=== PATIENT | female | born 2000 | race American Indian/Alaskan Native ===

== ENCOUNTER 2024-12-17 22:44 | Emergency (ER) | payer MEDICAID, SELFPAY ==
[2024-12-17 22:48] VITALS: BMI 22.6
[2024-12-17 22:59] VITALS: BP 123/75; PULSE 98; RESP 20; TEMP 37.3; O2SAT 100
--- NOTE | 2024-12-17 23:18 | PD.EDADULT ---
ED General RME/HPI General Chief complaint: Flu Like Symptoms Stated complaint: 11 WKS PREG FEVER BODY ACHES NV Time Seen by Provider: 12/17/24 23:10 Arrival date/time: 12/17/24 22:44 Related Data Previous Rx's ?Medication ?Instructions ?Recorded amoxicillin 500 mg capsule 500 mg PO BID 10 days #20 caps 12/18/24 ondansetron 4 mg disintegrating 4 mg PO TID PRN nausea and 12/18/24 tablet vomiting 30 days #10 tabs Allergies Allergy/AdvReac Type Severity Reaction Status Date / Time No Known Allergies Allergy Verified 12/17/24 22:47 ED Exam Narrative Physical exam: GENERAL: NAD, AAOx3 HEENT: Moist mucosa. Eyes open, symmetrical, & clear CARDIO: Heart RRR, no obvious murmurs PULM: No noted coughing/dyspnea CTA B/L, no R/W/R GI: Abdomen soft, nondistended, no pain on palpation. BSx4 SKIN/MSK/EXT: No wounds/rashes/edema/amputations, no pain on palpation. Pedal pulses present B/L NEURO: AAOx3, no focal neuro deficits, able to move all 4 extremities Course Quality Measures none Orders Category Date Time Status Bedside COVID-19 Antigen Test NOW Care 12/17/24 23:20 Active Bedside Influenza A&B Antigen Test NOW Care 12/17/24 23:21 Completed heart tone auscultation Q4H Care 12/17/24 23:24 Active CBC Stat Lab 12/17/24 23:43 Completed CMP [Comprehensive Metabolic Panel] Stat Lab 12/17/24 23:43 Completed Strep A Rapid Stat Lab 12/18/24 00:00 Completed UA [Urinalysis] Stat Lab 12/17/24 00:00 Completed Amoxicillin Susp [Amoxil Susp] Med 12/18/24 00:58 Discontinued 500 mg PO X1 ONE KCL 10% Liq UDC 15 ML Med 12/18/24 00:49 Discontinued 40 meq PO X1 ONE Ondansetron Inj [Zofran Inj] Med 12/17/24 23:27 Discontinued 4 mg IVP X1 ONE Ondansetron Odt [Zofran Odt] Med 12/18/24 00:58 Discontinued 4 mg PO X1 ONE Ringers Lactated 1000 ml [Lactated Ringers] 1,000 ml Med 12/17/24 23:31 Discontinued IV 999 mls/hr oxyCODONE/APAP 5/325 [Percocet 5/325] Med 12/18/24 00:59 Discontinued 2 tab PO X1 ONE Vital Signs Vital signs: Vital Signs Temperature 99.2 F 12/17/24 22:59 Pulse Rate 98 12/17/24 22:59 Respiratory Rate 20 12/17/24 22:59 Blood Pressure 123/75 12/17/24 22:59 Pulse Oximetry (%) 100 12/17/24 22:59 Oxygen Delivery Method Room Air 12/17/24 22:59 Discharge Plan Plan Patient Disposition: HOME (Self Care) Prescriptions/Referrals Prescriptions/Med Rec: New amoxicillin 500 mg capsule 500 mg PO BID 10 Days Qty: 20 0RF ondansetron 4 mg tablet,disintegrating 4 mg PO TID PRN (Reason: nausea and vomiting) 30 Days Qty: 10 0RF Referrals: Leticia Hernandez, [employer] [Primary Care Provider] - In 1 week Problem List Clinical Impression: COVID-19, Strep throat Patient/Caregiver Discharge Instructions Discharge Activity: activity as tolerated Education Materials: Caring for Someone Who Has COVID-19, COVID-19 Home Care Additional Instructions: Discharge Instructions from Dr. Ackerman printed for you: -- Unfortunately, you are ill with COVID and strep throat. -- Your baby is doing well with excellent heart activity. -- Take amoxicillin as prescribed. -- Eat regular nutritious meals for you and your baby. For good hydration, increase oral fluid and maintain clear urine. If dark or yellow, increase oral fluid. Zofran for nausea/vomiting. -- Tylenol for pain or fever. -- See a private doctor on 12/23/2024 if not completely better. -- Continue current OB care. -- Seek immediate medical care with worsening, baby not moving, or with any concerns. Print Language: Turkish Stand Alone Forms: Connie Award Info., Patient Portal Info Letter MDM Narrative MDM hospital course: 24 y/o F with no past medical history who is 11weeks who presents to the ED due to flulike symptoms. Patient states she began having cough with fevers at home chills and diaphoresis. She states that this morning she started having around 4-5 episodes of vomiting nonbloody. She also endorses a sore throat but relates it to vomiting. 2334: heart tones ordered, CBC, CMP, Zofran ordered, UA ordered, swabs ordered 0006: COVID Test positive, heart sounds heard 134 bpm 0120: Gave 1 dose of amoxicillin here, Zofran, as well as potassium supplementation and ordered meds to her pharmacy Patient is stable at this time for discharge. Clinical Information Provided by patient and spouse Medical Records Reviewed None EKG EKG not done Lab Interpretation Labs: interpreted by ia Lab(s) interpretation(s): CBC unremarkable Medication Administration(s) Medication Administration History Discontinued Medications Amoxicillin (Amoxicillin Susp 250 Mg/5 Ml Udc) 500 mg PO X1 ONE Stop: 12/18/24 00:59 Lactated Ringer's (Lactated Ringers) 1,000 mls @ 999 mls/hr IV .Q1H1M ONE Stop: 12/18/24 00:31 Ondansetron HCl (Ondansetron Inj 2 Mg/Ml Inj 2 Ml) 4 mg IVP X1 ONE; Protocol Stop: 12/17/24 23:28 Ondansetron HCl (Ondansetron Odt 4 Mg Tabrap) 4 mg PO X1 ONE; Protocol Stop: 12/18/24 00:59 Oxycodone/Acetaminophen (Oxycodone/Apap 5/325 Tablet) 2 tab PO X1 ONE Stop: 12/18/24 01:00 Potassium Chloride (Potassium Chloride 10% 20 Meq/15 Ml Udc) 40 meq PO X1 ONE Stop: 12/18/24 00:50
[2024-12-17 23:52] LABS: Basophils # (Auto) 0.0 Thou/mm3 (0.0-0.2); Basophils % (Auto) 0 % (0-2.5); Eosinophils # (Auto) 0.1 Thou/mm3 (0.0-0.5); Eosinophils % (Auto) 1 % (0-10); Hematocrit 34.8 % (36.0-46.0); Hemoglobin 12.9 g/dL (12.0-16.0); Immature Granulocytes Auto 0.05 Thou/mm3 (0.00-0.00); Lymphocytes # (Auto) 0.2 Thou/mm3 (1.0-4.8); Lymphocytes % (Auto) 2 % (10-50); Mean Corpuscular HGB Conc 37.1 g/dl (31.0-37.0); Mean Corpuscular Hemoglobin 30.7 pg (25.0-35.0); Mean Corpuscular Volume 83 fL (80-100); Monocytes # (Auto) 1.0 Thou/mm3 (0.0-0.8); Monocytes % (Auto) 10 % (0-12); Neutrophils # (Auto) 8.7 Thou/mm3 (1.8-7.7); Neutrophils % (Auto) 87 % (37-80); Nucleated Red Blood Cell # 0.00 Thou/mm3 (0.00-0.00); Nucleated Red Blood Cell % 0 /100 WBC (0); Platelet Count 224 Thou/mm3 (140-440); RDW Standard Deviation 38.5 fL (36.4-46.3); Red Blood Count 4.20 Miln/mm3 (4.00-5.20); White Blood Count 10.0 Thou/mm3 (3.6-11.0)
[2024-12-18 00:08] LABS: Collection Type, Urine Clean Catch
[2024-12-18 00:13] LABS: Bilirubin,Urine Negative (Negative); Blood,Urine Negative (Negative); Clarity,Urine Clear (Clear/Hazy); Color,Urine Lt-Yellow (Lt Yel-Yel); Glucose, Urine Negative (Negative); Ketones,Urine 4+ (Negative); Leukocyte Esterase,Urine Negative (Negative); Nitrite,Urine Negative (Negative); PH,Urine 6.5 (5.0-7.0); Protein,Urine Negative (Neg - Trace); RBC,Urine 4 /hpf (0-3); Specific Gravity,Urine 1.028 (1.001-1.035); Squamous Epithelial Cell,Urine 7 /hpf (0-5); Urobilinogen,Urine Negative mg/dL (0.0-1.0); WBC,Urine 1 /hpf (0-5)
[2024-12-18 00:15] LABS: Alanine Aminotransferase 9 U/L (10-49); Albumin, Serum 4.5 gm/dL (3.5-5.0); Albumin/Globulin Ratio 1.7 (1.2-2.2); Alkaline Phosphatase 44 U/L (46-116); Anion Gap 12 (7-16); Aspartate Amino Transferase 13 U/L (0-34); BUN/Creatinine Ratio 14 Ratio (12-20); Bilirubin,Total 0.7 mg/dL (0.3-1.2); Blood Urea Nitrogen 10 mg/dL (9-23); Calcium 9.6 mg/dL (8.3-10.6); Calcium (Corrected) 9.6 mg/dL (8.5-10.1); Carbon Dioxide 19.7 mMol/L (20.0-31.0); Chloride 107 mMol/L (98-107); Creatinine (Component) 0.7 mg/dL (0.6-1.3); Estimated Creatinine Clearance 98.0 mL/min (>60); Globulin 2.6 gm/dL (2.3-3.5); Glucose 110 mg/dL (74-106); Osmolality,Calculated 277 (275-295); Potassium 3.2 mMol/L (3.4-5.1); Sodium 139 mMol/L (136-145); Total Protein 7.1 gm/dL (5.7-8.2); eGFR > 60 See Note
[2024-12-18 00:22] LABS: Strep A Rapid Positive (Negative)
[2024-12-18 01:15] VITALS: BP 105/66; PULSE 86; RESP 20; TEMP 37.6; O2SAT 99
[2024-12-18] MEDS: POTASSIUM CHLORIDE 10% 20 MEQ/15 ML UDC 40 MEQ PO (01:19)
[2024-12-18] MEDS: ONDANSETRON ODT 4 MG TABRAP PO (01:19)
== END 2024-12-18 01:29 | disposition home or self-care (01) ==
PROVIDERS: Student in an Organized Health Care Education/Training Program; Emergency Provider Emergency Medicine; PCP Nurse Practitioner Family
DX: O98.511 Other viral diseases complicating pregnancy, first trimester (principal); U07.1 COVID-19; O99.511 Diseases of the respiratory system complicating pregnancy, first trimester; J02.0 Streptococcal pharyngitis; Z3A.11 11 weeks gestation of pregnancy
CPT/HCPCS: 36415; 80053; 81001; 85025; 87400; 87651; 87811; 99283; Q0162; A9270